=== PATIENT | male | born 1975 | race Caucasian/White ===

== ENCOUNTER 2020-06-30 18:56 | Outpatient (REF) | payer SELFPAY ==
[2020-07-03 07:49] LABS: Chlamydia Result Negative (Negative); GC Result Negative (Negative)
== END 2020-06-30 18:57 | disposition home or self-care (01) ==
LOC: NCHCN 18:56
PROVIDERS: PCP Nurse Practitioner Family; Visit Provider Nurse Practitioner Family
DX: R10.2 Pelvic and perineal pain (principal)
CPT/HCPCS: 87491; 87591

== ENCOUNTER 2024-07-25 11:20 | Outpatient (REF) | payer SELFPAY ==
[2024-07-27 16:37] LABS: HIV-1/2 Ag & Ab Screen Negative (Negative)
[2024-07-27 16:38] LABS: Hepatitis C Ab w Rflx HCV PCR Negative (Negative)
[2024-07-30 08:49] LABS: Syphilis Serology (RPR) Negative (Negative)
[2024-07-30 08:50] LABS: Chlamydia Result Negative (Negative); GC Result Negative (Negative)
== END 2024-07-25 11:21 | disposition home or self-care (01) ==
LOC: LBN 11:20
PROVIDERS: Visit Provider Physician Assistant Medical
CPT/HCPCS: 86803; 87389; 87491; 87591; 86592

== ENCOUNTER 2024-07-25 15:27 | Outpatient (REF) | payer SELFPAY | END 2024-07-25 15:28 | disposition home or self-care (01) | LOC: LBN 15:27 | PROVIDERS: Visit Provider Physician Assistant Medical | DX: R36.9 Urethral discharge, unspecified (principal) | CPT/HCPCS: 86803; 87389; 87491; 87591; 86592 ==